=== PATIENT | male | born 1985 | race Caucasian/White ===

== ENCOUNTER 2017-01-03 22:12 | Emergency (ER) | payer OTHER ==
[~2017-01-03] VITALS: Ht 172.7 cm; Wt 79.4 kg
[~2017-01-03 22:12] MED LIST: ERYT1OIN6 EACHEYE; OFLO5DRO EACHEYE; PRED20TA PO
[2017-01-03 23:20] VITALS: BP 153/86
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
== END 2017-01-03 23:30 | disposition home or self-care (01) ==
LOC: ER 22:12
DX: R41.82 Altered mental status, unspecified (principal); R45.1 Restlessness and agitation; R00.0 Tachycardia, unspecified
CPT/HCPCS: 99283